=== PATIENT | male | born 1960 | race Hispanic/Latino ===

== ENCOUNTER 2018-08-17 07:02 | Outpatient (CLI) | payer OTHER ==
[2018-08-17] MEDS ORDERED: Iopamidol 370 76% 100 ML VIAL ONE (07:57)
--- NOTE | 2018-08-17 16:02 | CT ---
CT ABDOMEN AND PELVIS WITH CONTRAST: 08/17/[address] of the abdomen and pelvis was performed for evaluation of left groin pain. The study was do ne after giving IV and oral contrast. Axial slices were acquired, then coronal and sagittal reconstru ctions were done. There are no infiltrates in the lung bases; however, there is a noncalcified nodule in the left lower lobe peripherally measuring 8 mm in diameter. There is a smaller 4 to 5 mm noncalcified nodule in th e right lower lobe laterally. The margins of each are smooth. Statistically, these have a low inciden ce of malignancy as long as there is no other suspicion or reason to consider cancer elsewhere. I wou ld recommend a followup CT in 6 to 12 months, depending upon the clinical history. The liver, spleen, pancreas, adrenal glands, gallbladder and aorta were unremarkable in appearance. A small 1.2 cm cyst is seen on the upper pole of the left kidney. There is no urinary tract obstruction. There is no distention of bowel to suggest obstruction. Some of the folds of the proximal jejunum are a little thicker than often seen. I did not hear of any symptoms in this region to ascribe significa nce to them, however. A few diverticular are seen in the left colon without any convincing findings o f diverticulitis. There might be some minor thickening of the sigmoid colon wall but no real streakin g around it. No free air or free fluid was seen. CT of the pelvis showed no pelvic masses, fluid collections, or inflammatory changes. There was no ev idence of an inguinal hernia. No gross disc herniation was identified. IMPRESSION: 1. No acute abdominal or pelvic findings to explain left groin pain. 2. Very slight prominence in thickness of the proximal jejunum, a nonspecific finding. If there are no symptoms here, it may be a superfluous finding. 3. Very small noncalcified nodules in the lower lobes, 4 to 5 mm size on the right and 8 mm on t he left. See discussion above. Code LN POS: HOME
== END 2018-08-17 07:03 | disposition home or self-care (01) ==
LOC: BURCT 07:02
PROVIDERS: ATTEND Family Medicine
DX: R10.32 Left lower quadrant pain (principal); R91.8 Other nonspecific abnormal finding of lung field
CPT/HCPCS: 74177; Q9967

== ENCOUNTER 2019-12-13 08:54 | Outpatient (CLI) | payer OTHER ==
--- NOTE | 2019-12-13 10:45 | CT ---
CT Chest W Con History: Pulmonary nodules. Comparison: CT abdomen and pelvis 2019 Findings: Few scattered lung cysts in the upper and lower lobes. Similar appearance 5 mm nodule left lower lobe. Similar appearance 4 mm nodule right lower lobe. Right middle lobe perifissural nodule is similar. Improved atelectatic changes along the right middle lobe. No new suspicious pulmonary nodule. No pneumothorax. No effusion. Thoracic spine is intact as well as the sternum and manubrium. No mediastinal adenopathy. No pericardial effusion. Hypodensity superior pole left kidney has not had significant growth. Remainder of the upper abdomen is unremarkable. Impression: 1. Unchanged benign pulmonary nodules. 2. No acute intrathoracic abnormality. No evidence for pneumonia. 3. No new suspicious pulmonary nodule.
[2019-12-13] MEDS ORDERED: Iopamidol 370 76% 100 ML VIAL ONE (11:37)
== END 2019-12-13 08:55 | disposition home or self-care (01) ==
LOC: BURCT 08:54
PROVIDERS: ATTEND Family Medicine
DX: R91.8 Other nonspecific abnormal finding of lung field (principal)
CPT/HCPCS: 71260; 82565; Q9967